=== PATIENT | female | born 1940 | race Caucasian/White ===

== ENCOUNTER → 2016-07-10 | Day surgery (SDC) | payer OTHER ==
[~2016-07-10] MED LIST: BUPIVACAINE/EPINEPHRINE 0.5% 50 ML VIAL ONE; CLINDAMYCIN PHOS 600 MG/4 ML VIAL ONE; KETOROLAC TROMETHAMINE 30 MG/ML (IVP) VIAL IV PUSH ONE; LACTATED RINGER'S 1000 ML INJ 1,000 ML ONE; MIDAZOLAM HCL 2 MG/2 ML VIAL ONE; ONDANSETRON HCL 4 MG/2 ML VIAL IV PUSH ONE; PROPOFOL 200 MG/20 ML AMP IV ONE; TRIAMCINOLONE ACETONIDE 40 MG/ML VIAL ONE; ceFAZolin INJ 1,000 MG VIAL ONE
--- NOTE | 2016-07-10 16:44 | MP ---
cc: DELMAR MEDINA DATE OF SURGERY: 07/10/2016 PREOPERATIVE DIAGNOSIS: Left knee medial and lateral meniscal tear. POSTOPERATIVE DIAGNOSIS: Left knee medial and lateral meniscal tear. SURGEON: Delmar Medina MD. RACKMAN: MARCELLE Mendez. The surgical procedure was assisted by my Advanced Registered Nurse Practitioner. My DEGREE CLERK presence was necessary throughout this case for the manipulation and positioning of the surgical extremity. My DEGREE CLERK was assisting me throughout the duration of this procedure. The skill set of an Advance Registered Nurse Practitioner was medically necessary to complete this procedure. During the surgical case, the surgical assistant certified was working at the back table and the Advance Registered Nurse Practitioner was directly assisting me. PROCEDURE: Left knee arthroscopy with partial medial and lateral meniscectomies. ESTIMATED BLOOD LOSS: Minimal. ANESTHESIA General. TOURNIQUET TIME: Zero minutes. PROCEDURE The patient is brought back to the operative theater. General anesthesia was administered. She received intravenous clindamycin. The left lower extremity is prepped and draped in the usual sterile fashion. We started with a standard inferolateral portal, followed by inferomedial portal, under spinal needle visualization. 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 The medial femoral condyle had some mild grade 1 chondromalacia diffusely. There was a complex tear of the medial meniscus encompassing most of the body and posterior horn. We used an oscillating shaver to perform partial medial meniscectomy removing approximately 35% of the meniscus. There was a small area of grade 2 chondromalacia of the medial tibial plateau. There are multiple small fragments of cartilage likely from the meniscus that had been floating around the knee which were removed with the oscillating shaver. The anterior cruciate ligament was found to be intact. The lateral meniscus had inner edge tearing around the posterior horn and anterior horn. We used the oscillating shaver to debride these areas and perform a partial lateral meniscectomy. Ultimately removing about 10% of the lateral meniscus. Remaining portion of the lateral compartment was unremarkable. We visualized the medial lateral gutters which showed no loose bodies. We gave interarticular injection of 0.25% Marcaine with epinephrine with 40 mg of Kenalog. Portals were closed with 2-0 Vicryl followed by 3-0 nylon. Leg was dressed. Postop plan is weight bear as tolerated early range of motion. MD ESTEFANIA Felipe/karrie /1:33 PM /4:39 PM
== END | disposition home or self-care (01) ==
LOC: ESDC 11:25
PROVIDERS: ATTEND Orthopaedic Surgery
DX: S83.232A Complex tear of medial meniscus, current injury, left knee, initial encounter (principal); S83.282A Other tear of lateral meniscus, current injury, left knee, initial encounter
CPT/HCPCS: 01400; 29880; J0690; J1885; J2250; J2405; J3010; J3301; J7120